=== PATIENT | male | born 2000 | race Caucasian/White ===

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

== ENCOUNTER 2020-09-26 14:21 | Emergency (ER) | payer OTHER, SELFPAY ==
[2020-09-26 14:22] VITALS: BP 139/78; PULSE 84; RESP 17; TEMP 36.2; O2SAT 99; BMI 30.3
--- NOTE | 2020-09-26 15:20 | ED.DCSUM_ITS ---
History of Present Illness Chief Complaint: Laceration Informant: Patient Occurred: Today Mechanism/Context: Work Related Context: Sudden Onset Timing: Continuous Quality of Pain: - - sore Location: R hand Current Severity: Mild Maximum Severity: Moderate Worsened by: palpation Relieved by: leaving alone Associated Symptoms: Negative for: Parasthesia, Weakness, Loss of Funtion Narrative: 19-year-old healthy male [id number] presents after sustaining a couple lacerations to his right hand. He states he was using his hand to try to pull metal shavings out of a machine, turned on, spinning the metal shavings which caused lacerations to his right thumb and ring finger. Tetanus Immunization: Unknown Past Medical History - Allergies and Home Meds Allergies/Adverse Reactions: Allergies No Known Allergies Allergy (Verified 09/26/20 14:22) Primary Care Physician: Francisco Javier Alvarado MD [Primary Care Provider] - Past Medical History: None Smoking Status: Current every day smoker Review of Systems General: Denies: Chills, Fever, Sweats Musculoskeletal: Reports: Extremity Pain Skin: Reports: Wounds. Denies: Rash Neurological: Denies: Headache, Weakness, Numbness Physical Exam Vital Signs/Narrative: Vital Signs Temp Pulse Resp BP Pulse Ox 09/26/20 14:22 97.2 F L 84 17 139/78 H 99 General: Well nourished, Well developed, - - Well-appearing no distress Head: Normocephalic, Atraumatic Extremeties: 3 cm laceration to the volar ulnar aspect of the right ring finger at about the level of the DIPJ, he has intact FDP and FDS function without pain. Also there is a 2 cm subcutaneous laceration to the distal phalanx radial aspect of the right thumb, does not involve the nail or the nail bed, and does not involve any tendons. Full range of motion throughout all joints of all fingers of the right hand. No pulsatile bleeding. Skin: Normal color, No rash, Trauma - Lacerations to the right hand x2, total length 5 cm. See above. Neurological: Alert, Oriented x3, Cranial nerves II-XII grossly intact, Normal Strength, Normal Sensation, Normal Gait Psychological: Normal affect, Normal Mood Diagnostic/Tx/Re-eval - Medical Decision Making After placing a turnicot on the patient's ring finger and exploring the wound with a bloodless field, it was evident that he involved the flexor digitorum superficialis tendon in the injury. It appears to be partially lacerated but almost completely, he still has pull and function with flexing the DIPJ. After repairing the wound, he was splinted in extension, I discussed with orthopedics but they do not do flexor tendon surgeries here and he will be referred both to [facility] and [facility] in [place]. Placed on Duricef for prevention in the meantime, his hand is filthy from dirt and grease from work. Procedures - Lacerations R thumb Length: 2 cm Depth: Sub Q Shape: Linear Prep: Sterile Conditions, Chlorhexadine Laceration repair: Irrigated, Lidocaine - 1%, 2cc total, Local, Skin sutures Irrigated (ml): 60 Number of Sutures/Azael: 5 Suture Information: Ethilon, Simple, 4-0 R ring finger Length: 3 cm Depth: Tendon Shape: Stellate Prep: Sterile Conditions, Chlorhexadine Laceration repair: Irrigated, Lidocaine - 1%, 2cc, Local, Skin sutures, Wound explored - + FDS tendon lacerated almost completely Irrigated (ml): 60 Number of Sutures/[place]: 7 Suture Information: Ethilon, Simple, 4-0 ED Disposition - Plan for ED Patient: Disposition: Home or Assisted Living Diagnosis: Laceration of flexor tendon of right hand, Laceration of right ring finger, Laceration of right thumb, Tetanus-diphtheria (Td) vaccination Instructions: ED Laceration Hand, ED TENDON LACERATION Prescriptions: Cefadroxil Hydrate [Duricef] 500 mg PO BID 7 Days #14 cap Prescription Printed Referrals: [facility] [Provider Group] - As soon as possible (call for appt) [facility] [GROUP OF PHYSICIANS] - 2 Days
[2020-09-26] MEDS: Diphth,Pertuss(Acell),Tet Vac 0.5 ML Vial IM (15:59)
[2020-09-26 17:20] VITALS: BP 112/72; PULSE 78; RESP 16; O2SAT 100
== END 2020-09-26 17:21 | disposition home or self-care (01) ==
PROVIDERS: Emergency Provider Emergency Medicine; PCP Family Medicine
DX: S66.124A Laceration of flexor muscle, fascia and tendon of right ring finger at wrist and hand level, initial encounter (principal); S61.011A Laceration without foreign body of right thumb without damage to nail, initial encounter; W26.8XXA Contact with other sharp object(s), not elsewhere classified, initial encounter; Y93.89 Activity, other specified; Y92.9 Unspecified place or not applicable; Y99.0 Civilian activity done for income or pay; F17.200 Nicotine dependence, unspecified, uncomplicated
CPT/HCPCS: 12001; 26350; 90471; 90715; 99284